=== PATIENT | male | born 1945 | race Caucasian/White ===

== ENCOUNTER 2021-06-30 09:30 | Emergency (ER) | payer MEDICARE, BC, OTHER ==
[2021-06-30 13:42] LABS: #Monocytes 1.1 thou/uL (0.11-0.59); #Neutrophils 10.6 thou/uL (1.40-6.50); %Basophils 0.1 % (0.0-1.0); %Eosinophils 0.2 % (0.0-10.0); %Lymphocytes 14.5 % (21.0-51.0); %Monocytes 8.2 % (0.0-10.0); %Neutrophils 76.9 % (42.0-75.0); Hemoglobin 12.9 g/dL (14.0-18.0); Mean Corpuscular Hemoglobin 32.2 pg (27.0-31.0); Mean Corpuscular Volume 94.8 fL (78.0-98.0); Mean Platelet Volume 8.1 fL (7.4-10.4); Platelet Count 216 thou/uL (130-400); RBC Distribution Width 11.7 % (11.5-14.5); Red Blood Cell (RBC) Count 3.99 mill/uL (4.70-6.10); White Blood Cell (WBC) Count 13.8 thou/uL (4.8-10.8)
[2021-06-30 14:25] LABS: ALT (SGPT) 15 U/L (8-55); AST (SGOT) 13 U/L (5-34); Albumin 3.8 g/dL (3.4-4.8); Alkaline Phosphatase 38 U/L (40-110); Anion Gap 13 mmol/L (10-20); BUN (Urea Nitrogen) 62 mg/dL (8.4-25.7); Bilirubin, Total 0.7 mg/dL (0.2-1.2); Calc. Creatinine Clearance 0 mL/min (70-130); Calcium 8.8 mg/dL (7.8-10.44); Carbon Dioxide 21 mmol/L (23-31); Chloride 107 mmol/L (98-107); Glucose 175 mg/dL (83-110); Potassium 4.6 mmol/L (3.5-5.1); Protein, Total 5.8 g/dL (5.8-8.1); Sodium 136 mmol/L (136-145)
[2021-06-30 14:56] LABS: Troponin I Less than 0.010 ng/mL (< 0.028)
[2021-06-30 23:09] LABS: SARS-CoV-2 PCR by NAA Not Detected (NotDetected)
== END 2021-06-30 17:10 | disposition home or self-care (01) ==
LOC: ERS 09:30
DX: R53.83 Other fatigue (principal); R05 Cough; R94.4 Abnormal results of kidney function studies; Z20.822 Contact with and (suspected) exposure to COVID-19
CPT/HCPCS: 71045; 80053; 83880; 84484; 85025; 93005; 99285; U0003; U0005; 36415

== ENCOUNTER 2021-07-08 17:18 | Inpatient (IN) | payer MEDICARE, BC, OTHER ==
[2021-07-08] MEDS ORDERED: Ondansetron PF 4 MG/2 ML Vial ONE (17:40)
[2021-07-08] MEDS ORDERED: Morphine 4 MG/ML VIAL ONE ×2 (17:40→21:09)
[2021-07-08 18:11] LABS: #Eosinphils 0.3 thou/uL (0.0-0.7); #Lymphocytes 1.5 thou/uL (1.20-3.40); #Monocytes 0.8 thou/uL (0.11-0.59); %Basophils 0.6 % (0.0-1.0); %Eosinophils 3.1 % (0.0-10.0); %Lymphocytes 17.6 % (21.0-51.0); %Neutrophils 69.8 % (42.0-75.0); Hemoglobin 10.9 g/dL (14.0-18.0); Mean Corpuscular HGB CONC 32.6 g/dL (32.0-36.0); Mean Corpuscular Hemoglobin 31.3 pg (27.0-31.0); Mean Corpuscular Volume 96.1 fL (78.0-98.0); Mean Platelet Volume 7.5 fL (7.4-10.4); Platelet Count 399 thou/uL (130-400); RBC Distribution Width 13.2 % (11.5-14.5); Red Blood Cell (RBC) Count 3.49 mill/uL (4.70-6.10); White Blood Cell (WBC) Count 8.6 thou/uL (4.8-10.8)
[2021-07-08 18:33] LABS: Digoxin 0.47 ng/mL (0.8-2.0)
[2021-07-08 18:37] LABS: ALT (SGPT) 16 U/L (8-55); AST (SGOT) 20 U/L (5-34); Albumin 3.8 g/dL (3.4-4.8); Alkaline Phosphatase 55 U/L (40-110); Anion Gap 11 mmol/L (10-20); BUN (Urea Nitrogen) 8 mg/dL (8.4-25.7); Bilirubin, Total 0.7 mg/dL (0.2-1.2); Calc. Creatinine Clearance 0 mL/min (70-130); Calcium 8.7 mg/dL (7.8-10.44); Carbon Dioxide 27 mmol/L (23-31); Chloride 103 mmol/L (98-107); Globulin 2.2 g/dL (2.4-3.5); Glucose 114 mg/dL (83-110); Potassium 4.6 mmol/L (3.5-5.1); Sodium 136 mmol/L (136-145)
[2021-07-08] MEDS ORDERED: Midazolam HCl 2 mg/2 ml Vial ONE (20:12)
[2021-07-08] MEDS ORDERED: Morphine 4 MG/ML VIAL SLOW IVP PRN (22:47)
[2021-07-08] MEDS ORDERED: Ondansetron PF 4 MG/2 ML Vial IVP PRN (23:00)
[2021-07-08] MEDS ORDERED: Ondansetron ODT 4 MG TAB SL PRN (23:00)
[2021-07-08] MEDS: Lactated Ringer's 1,000 ML IV SCH (23:30)
[2021-07-08] MEDS ORDERED: Acetaminophen 325 MG TAB PO PRN (23:49)
[2021-07-08] MEDS ORDERED: Acetaminophen 650 MG Suppository PR PRN (23:49)
[2021-07-09] MEDS ORDERED: Sotalol HCl 80 MG TAB PO SCH (00:45)
[2021-07-09 08:16] LABS: #Eosinphils 0.3 thou/uL (0.0-0.7); #Lymphocytes 1.5 thou/uL (1.20-3.40); #Monocytes 0.8 thou/uL (0.11-0.59); #Neutrophils 6.8 thou/uL (1.40-6.50); %Basophils 0.2 % (0.0-1.0); %Eosinophils 3.3 % (0.0-10.0); %Lymphocytes 15.8 % (21.0-51.0); %Monocytes 8.4 % (0.0-10.0); %Neutrophils 72.4 % (42.0-75.0); Hemoglobin 9.4 g/dL (14.0-18.0); Mean Corpuscular HGB CONC 33.4 g/dL (32.0-36.0); Mean Corpuscular Volume 95.9 fL (78.0-98.0); Mean Platelet Volume 7.6 fL (7.4-10.4); Platelet Count 360 thou/uL (130-400); RBC Distribution Width 13.2 % (11.5-14.5); Red Blood Cell (RBC) Count 2.95 mill/uL (4.70-6.10); White Blood Cell (WBC) Count 9.3 thou/uL (4.8-10.8)
[2021-07-09] MEDS: Digoxin 0.125 MG TAB PO SCH (08:17)
[2021-07-09] MEDS: Sotalol HCl 80 MG TAB PO SCH ×2 (08:17→21:33)
[2021-07-09] MEDS: Enoxaparin Sodium 40 MG/0.4 ML SYRINGE SC SCH (08:26)
[2021-07-09] MEDS: Lactated Ringer's 1,000 ML IV SCH ×2 (08:27→10:41)
[2021-07-09 08:35] LABS: Anion Gap 7 mmol/L (10-20); BUN (Urea Nitrogen) 8 mg/dL (8.4-25.7); Calc. Creatinine Clearance 40 mL/min (70-130); Carbon Dioxide 28 mmol/L (23-31); Chloride 106 mmol/L (98-107); Glucose 93 mg/dL (83-110); Potassium 4.5 mmol/L (3.5-5.1); Sodium 136 mmol/L (136-145)
[2021-07-09] MEDS ORDERED: Ondansetron PF 4 MG/2 ML Vial IVP PRN (09:54)
[2021-07-09 12:18] VITALS: BMI 24.4
[2021-07-09 12:49] LABS: SARS-CoV-2 PCR by NAA Not Detected (NotDetected)
[2021-07-09] MEDS ORDERED: Lorazepam 2 MG/ML VIAL SLOW IVP PRN (18:25)
[2021-07-09] MEDS: Carvedilol 25 MG TAB PO SCH (21:32)
[2021-07-09] MEDS: Atorvastatin Calcium 40 MG TAB PO SCH (21:32)
[2021-07-10] MEDS: Chloraseptic Spray 180 ml Bottle PO PRN ×2 (03:42→21:36)
[2021-07-10] MEDS: Lactated Ringer's 1,000 ML IV SCH ×2 (05:01→11:25)
[2021-07-10 08:22] LABS: #Eosinphils 0.1 thou/uL (0.0-0.7); #Lymphocytes 1.3 thou/uL (1.20-3.40); #Neutrophils 12.5 thou/uL (1.40-6.50); %Basophils 0.1 % (0.0-1.0); %Eosinophils 0.8 % (0.0-10.0); %Lymphocytes 8.6 % (21.0-51.0); %Monocytes 6.9 % (0.0-10.0); %Neutrophils 83.6 % (42.0-75.0); Hemoglobin 10.3 g/dL (14.0-18.0); Mean Corpuscular HGB CONC 32.7 g/dL (32.0-36.0); Mean Corpuscular Hemoglobin 30.7 pg (27.0-31.0); Mean Platelet Volume 7.3 fL (7.4-10.4); Platelet Count 398 thou/uL (130-400); RBC Distribution Width 13.3 % (11.5-14.5); Red Blood Cell (RBC) Count 3.36 mill/uL (4.70-6.10); White Blood Cell (WBC) Count 14.9 thou/uL (4.8-10.8)
[2021-07-10] MEDS: Enoxaparin Sodium 40 MG/0.4 ML SYRINGE SC SCH (08:31)
[2021-07-10] MEDS: Digoxin 0.125 MG TAB PO SCH (08:31)
[2021-07-10] MEDS: Aspirin 81 mg Enteric Coated Tablet PO SCH (08:31)
[2021-07-10] MEDS: Sotalol HCl 80 MG TAB PO SCH ×2 (08:31→21:25)
[2021-07-10] MEDS: Carvedilol 25 MG TAB PO SCH ×2 (08:31→21:24)
[2021-07-10 08:47] LABS: Anion Gap 14 mmol/L (10-20); BUN (Urea Nitrogen) 12 mg/dL (8.4-25.7); Calc. Creatinine Clearance 89 mL/min (70-130); Calcium 8.1 mg/dL (7.8-10.44); Carbon Dioxide 25 mmol/L (23-31); Chloride 102 mmol/L (98-107); Glucose 87 mg/dL (83-110); Magnesium 2.2 mg/dL (1.6-2.6); Potassium 4.3 mmol/L (3.5-5.1); Sodium 137 mmol/L (136-145)
[2021-07-10] MEDS ORDERED: Amino Acids 4.25 %/Dextrose 5% 2,000 ML IV SCH (09:30)
[2021-07-10] MEDS ORDERED: Amino Acids 4.25 %/Dextrose 5% 1,000 ML IV SCH (09:45)
[2021-07-10] MEDS: Pantoprazole 40 MG VIAL IVP SCH ×2 (09:54→21:25)
[2021-07-10] MEDS: Amino Acids 4.25 %/Dextrose 5% 1,000 ML IV SCH ×2 (11:00→21:24)
[2021-07-10] MEDS: Cepastat Lozenges 1 LOZ PO PRN ×2 (17:20→21:36)
[2021-07-10] MEDS: Atorvastatin Calcium 40 MG TAB PO SCH (21:24)
[2021-07-11] MEDS: Lactated Ringer's 1,000 ML IV SCH ×2 (02:00→13:07)
[2021-07-11] MEDS: Carvedilol 25 MG TAB PO SCH ×2 (08:10→20:56)
[2021-07-11] MEDS: Cepastat Lozenges 1 LOZ PO PRN (08:10)
[2021-07-11] MEDS: Enoxaparin Sodium 40 MG/0.4 ML SYRINGE SC SCH (08:11)
[2021-07-11] MEDS: Digoxin 0.125 MG TAB PO SCH (08:11)
[2021-07-11] MEDS: Pantoprazole 40 MG VIAL IVP SCH ×2 (08:11→20:57)
[2021-07-11] MEDS: Aspirin 81 mg Enteric Coated Tablet PO SCH (08:11)
[2021-07-11 08:27] LABS: #Eosinphils 0.3 thou/uL (0.0-0.7); #Lymphocytes 1.2 thou/uL (1.20-3.40); #Monocytes 0.9 thou/uL (0.11-0.59); #Neutrophils 11.3 thou/uL (1.40-6.50); %Lymphocytes 8.7 % (21.0-51.0); %Monocytes 6.5 % (0.0-10.0); %Neutrophils 82.8 % (42.0-75.0); Hemoglobin 9.9 g/dL (14.0-18.0); Mean Corpuscular HGB CONC 33.7 g/dL (32.0-36.0); Mean Corpuscular Hemoglobin 31.9 pg (27.0-31.0); Mean Corpuscular Volume 94.9 fL (78.0-98.0); Mean Platelet Volume 7.3 fL (7.4-10.4); Platelet Count 357 thou/uL (130-400); RBC Distribution Width 13.4 % (11.5-14.5); Red Blood Cell (RBC) Count 3.09 mill/uL (4.70-6.10); White Blood Cell (WBC) Count 13.7 thou/uL (4.8-10.8)
[2021-07-11 08:33] LABS: INR-International Normal Ratio 1.1; Prothrombin Time 14.7 sec (12.0-14.7)
[2021-07-11 08:34] LABS: PTT 27.8 sec (22.9-36.1)
[2021-07-11 08:35] LABS: Phosphorus 2.1 mg/dL (2.3-4.7)
[2021-07-11 08:37] LABS: Anion Gap 10 mmol/L (10-20); BUN (Urea Nitrogen) 11 mg/dL (8.4-25.7); Calc. Creatinine Clearance 86 mL/min (70-130); Carbon Dioxide 24 mmol/L (23-31); Chloride 103 mmol/L (98-107); Glucose 118 mg/dL (83-110); Magnesium 2.2 mg/dL (1.6-2.6); Potassium 4.1 mmol/L (3.5-5.1); Sodium 133 mmol/L (136-145)
[2021-07-11] MEDS ORDERED: Amino Acids 4.25 %/Dextrose 5% 2,000 ML BAG IV SCH (09:00)
[2021-07-11] MEDS: Sotalol HCl 80 MG TAB PO SCH ×2 (09:18→21:49)
[2021-07-11] MEDS: Amino Acids 4.25 %/Dextrose 5% 1,000 ML IV SCH (09:46)
[2021-07-11] MEDS ORDERED: MD-Gastroview 120 ML BOT ONE (10:43)
[2021-07-11] MEDS: Atorvastatin Calcium 40 MG TAB PO SCH (20:56)
[2021-07-12 07:02] LABS: #Eosinphils 0.3 thou/uL (0.0-0.7); #Lymphocytes 1.4 thou/uL (1.20-3.40); #Monocytes 0.9 thou/uL (0.11-0.59); #Neutrophils 7.7 thou/uL (1.40-6.50); %Basophils 0.1 % (0.0-1.0); %Lymphocytes 13.9 % (21.0-51.0); %Monocytes 8.9 % (0.0-10.0); %Neutrophils 74.1 % (42.0-75.0); Hemoglobin 9.2 g/dL (14.0-18.0); Mean Corpuscular HGB CONC 33.3 g/dL (32.0-36.0); Platelet Count 307 thou/uL (130-400); RBC Distribution Width 13.4 % (11.5-14.5); Red Blood Cell (RBC) Count 2.86 mill/uL (4.70-6.10); White Blood Cell (WBC) Count 10.4 thou/uL (4.8-10.8)
[2021-07-12 07:18] LABS: Anion Gap 9 mmol/L (10-20); BUN (Urea Nitrogen) 10 mg/dL (8.4-25.7); Calc. Creatinine Clearance 96 mL/min (70-130); Calcium 7.9 mg/dL (7.8-10.44); Carbon Dioxide 25 mmol/L (23-31); Chloride 106 mmol/L (98-107); Glucose 94 mg/dL (83-110); Potassium 3.8 mmol/L (3.5-5.1); Sodium 136 mmol/L (136-145)
[2021-07-12] MEDS: Aspirin 81 mg Enteric Coated Tablet PO SCH (07:41)
[2021-07-12] MEDS: Digoxin 0.125 MG TAB PO SCH (07:41)
[2021-07-12] MEDS: Enoxaparin Sodium 40 MG/0.4 ML SYRINGE SC SCH (07:42)
[2021-07-12] MEDS: Sotalol HCl 80 MG TAB PO SCH (07:42)
[2021-07-12] MEDS: Pantoprazole 40 MG VIAL IVP SCH (07:42)
[2021-07-12] MEDS: Lactated Ringer's 1,000 ML IV SCH (07:42)
[2021-07-12] MEDS: Carvedilol 25 MG TAB PO SCH (07:42)
[2021-07-12 10:49] VITALS: BP 115/69; TEMP 98
== END 2021-07-12 10:52 | disposition home or self-care (01) | DRG 389 ==
LOC: ERS 17:18 → T4-B 19:25
PROVIDERS: ADMIT Student in an Organized Health Care Education/Training Program; ATTEND Internal Medicine
PROC: 0D9670Z Drainage of Stomach with Drainage Device, Via Natural or Artificial Opening (ICD-10-PCS; principal; 2021-07-08)
DX: K56.51 Intestinal adhesions [bands], with partial obstruction (principal); E87.1 Hypo-osmolality and hyponatremia; I48.91 Unspecified atrial fibrillation; I25.10 Atherosclerotic heart disease of native coronary artery without angina pectoris; D64.9 Anemia, unspecified; Z95.810 Presence of automatic (implantable) cardiac defibrillator; Z95.1 Presence of aortocoronary bypass graft; Z88.8 Allergy status to other drugs, medicaments and biological substances; Z79.82 Long term (current) use of aspirin; Z79.899 Other long term (current) drug therapy; Z79.01 Long term (current) use of anticoagulants; Z98.890 Other specified postprocedural states
CPT/HCPCS: 36415; 74018; 74019; 74176; 74250; 80048; 80053; 80162; 83735; 84100; 84134; 85025; 85610; 85730; 93005; 96374; 96375; 96376; C9113; J1650; J2060; J2250; J2270; J2405; J7120; Q9963; U0003; U0005

== ENCOUNTER 2021-07-29 13:40 | Outpatient (CLI) | payer MEDICARE, BC, OTHER ==
[2021-07-30 01:36] LABS: SARS-CoV-2 PCR by NAA Not Detected (NotDetected)
== END 2021-07-29 13:41 | disposition home or self-care (01) ==
LOC: LABBT 13:40
DX: Z01.812 Encounter for preprocedural laboratory examination (principal); Z20.822 Contact with and (suspected) exposure to COVID-19
CPT/HCPCS: U0003; U0005

== ENCOUNTER 2021-07-31 08:07 | Day surgery (SDC) | payer MEDICARE, BC, OTHER ==
[2021-07-30 11:27] VITALS: BMI 22.4
[2021-07-31] MEDS ORDERED: Lidocaine 1% PF 5 ML VIAL ONE (09:53)
[2021-07-31] MEDS ORDERED: PROPOFOL 200 MG/20 ML VIAL ONE (09:53)
== END 2021-07-31 11:15 | disposition home or self-care (01) ==
LOC: SDC 08:07
PROVIDERS: ATTEND Internal Medicine
PROC: 0DB78ZX Excision of Stomach, Pylorus, Via Natural or Artificial Opening Endoscopic, Diagnostic (ICD-10-PCS; principal; 2021-07-31)
PROC: 0W3P8ZZ Control Bleeding in Gastrointestinal Tract, Via Natural or Artificial Opening Endoscopic (ICD-10-PCS; 2021-07-31)
DX: K25.4 Chronic or unspecified gastric ulcer with hemorrhage (principal); K29.51 Unspecified chronic gastritis with bleeding; D64.9 Anemia, unspecified; K56.600 Partial intestinal obstruction, unspecified as to cause; K21.9 Gastro-esophageal reflux disease without esophagitis; I48.91 Unspecified atrial fibrillation; I50.9 Heart failure, unspecified; I25.10 Atherosclerotic heart disease of native coronary artery without angina pectoris; Z79.01 Long term (current) use of anticoagulants; Z79.82 Long term (current) use of aspirin; Z79.899 Other long term (current) drug therapy; Z88.8 Allergy status to other drugs, medicaments and biological substances; Z95.1 Presence of aortocoronary bypass graft; Z95.810 Presence of automatic (implantable) cardiac defibrillator
CPT/HCPCS: 88305; 88342; J2704

== ENCOUNTER 2021-10-05 10:15 | Outpatient (CLI) | payer MEDICARE, BC, OTHER ==
[2021-10-05 22:25] LABS: SARS-CoV-2 PCR by NAA Not Detected (NotDetected)
== END 2021-10-05 10:16 | disposition home or self-care (01) ==
LOC: LABBT 10:15
PROVIDERS: ATTEND Internal Medicine
DX: Z01.812 Encounter for preprocedural laboratory examination (principal); Z20.822 Contact with and (suspected) exposure to COVID-19
CPT/HCPCS: U0003; U0005

== ENCOUNTER 2021-10-07 06:05 | Day surgery (SDC) | payer MEDICARE, BC, OTHER ==
[2021-09-30 14:42] VITALS: BMI 23.1
[2021-10-07] MEDS ORDERED: Phenylephrine 10 MG/ML VIAL ONE (08:00)
[2021-10-07] MEDS ORDERED: Ketamine 50 MG/ML (10ML VIAL) ONE (08:00)
[2021-10-07] MEDS ORDERED: PROPOFOL 200 MG/20 ML VIAL ONE (08:00)
[2021-10-07] MEDS ORDERED: Lidocaine 1% PF 5 ML VIAL ONE (08:00)
== END 2021-10-07 09:00 | disposition home or self-care (01) ==
LOC: SDC 06:05
PROVIDERS: ATTEND Internal Medicine
PROC: 0DJ08ZZ Inspection of Upper Intestinal Tract, Via Natural or Artificial Opening Endoscopic (ICD-10-PCS; principal; 2021-10-07)
DX: D50.9 Iron deficiency anemia, unspecified (principal); K22.89 Other specified disease of esophagus; Z87.19 Personal history of other diseases of the digestive system; Z79.01 Long term (current) use of anticoagulants; Z79.82 Long term (current) use of aspirin; Z79.899 Other long term (current) drug therapy; Z88.8 Allergy status to other drugs, medicaments and biological substances; Z95.1 Presence of aortocoronary bypass graft
CPT/HCPCS: J2370; J2704

== ENCOUNTER 2021-11-13 13:39 | Outpatient (CLI) | payer MEDICARE, BC, OTHER ==
[2021-11-14 00:41] LABS: SARS-CoV-2 PCR by NAA Not Detected (NotDetected)
== END 2021-11-13 13:40 | disposition home or self-care (01) ==
LOC: LABBT 13:39
PROVIDERS: ATTEND Internal Medicine
DX: Z01.812 Encounter for preprocedural laboratory examination (principal); Z12.11 Encounter for screening for malignant neoplasm of colon; K25.4 Chronic or unspecified gastric ulcer with hemorrhage; D50.9 Iron deficiency anemia, unspecified; R10.32 Left lower quadrant pain; Z20.822 Contact with and (suspected) exposure to COVID-19
CPT/HCPCS: U0003; U0005

== ENCOUNTER 2021-11-18 06:19 | Day surgery (SDC) | payer MEDICARE, BC, OTHER ==
[2021-11-17 10:50] VITALS: BMI 23.1
[2021-11-18] MEDS ORDERED: PROPOFOL 200 MG/20 ML VIAL ONE (07:38)
[2021-11-18] MEDS ORDERED: Lidocaine 1% PF 5 ML VIAL ONE (07:38)
[2021-11-18] MEDS ORDERED: ePHEDrine 50 MG/ML VIAL ONE (07:38)
== END 2021-11-18 09:18 | disposition home or self-care (01) ==
LOC: SDC 06:19
PROVIDERS: ATTEND Internal Medicine
PROC: 0DBK8ZX Excision of Ascending Colon, Via Natural or Artificial Opening Endoscopic, Diagnostic (ICD-10-PCS; principal; 2021-11-18)
PROC: 0DBP8ZX Excision of Rectum, Via Natural or Artificial Opening Endoscopic, Diagnostic (ICD-10-PCS; 2021-11-18)
DX: Z12.11 Encounter for screening for malignant neoplasm of colon (principal); D12.2 Benign neoplasm of ascending colon; K62.1 Rectal polyp; Q43.8 Other specified congenital malformations of intestine; K57.30 Diverticulosis of large intestine without perforation or abscess without bleeding; K64.8 Other hemorrhoids; K64.4 Residual hemorrhoidal skin tags; D50.9 Iron deficiency anemia, unspecified; K21.9 Gastro-esophageal reflux disease without esophagitis; I50.9 Heart failure, unspecified; I25.10 Atherosclerotic heart disease of native coronary artery without angina pectoris; Z79.01 Long term (current) use of anticoagulants; Z79.82 Long term (current) use of aspirin; Z79.899 Other long term (current) drug therapy; Z88.8 Allergy status to other drugs, medicaments and biological substances; Z95.1 Presence of aortocoronary bypass graft; Z95.810 Presence of automatic (implantable) cardiac defibrillator
CPT/HCPCS: 45385; C1776; 88305; J2704; J3490